=== PATIENT | male | born 1960 | race Caucasian/White ===

== ENCOUNTER 2023-09-14 17:18 | Emergency (ER) | payer OTHER ==
[~2023-09-14] VITALS: Ht 177.8 cm; Wt 95.0 kg
[2023-09-14 17:21] VITALS: O2SAT 98
[2023-09-14 18:28] LABS: BASOPHILS % 0.6 % (0.0-2.0); EOSINOPHILS % 0.8 % (0.0-5.0); HEMATOCRIT. 35.4 % (42.0-52.0); LYMPHOCYTES % 21.3 % (20.0-50.0); MEAN CORPUSCULAR HEMOGLOBIN 30.9 pg (28.0-32.0); MEAN CORPUSCULAR HGB CONC 33.9 g/dL (31.0-37.0); MEAN CORPUSCULAR VOLUME 90.9 fL (80.0-94.0); MEAN PLATELET VOLUME 7.9 fl (7.4-10.4); MONOCYTES % 8.4 % (2.0-8.0); NEUTROPHILS % 68.9 % (40.0-76.0); PLATELET 252 x1000/uL (130-400); RED BLOOD CELL COUNT 3.89 mill/uL (4.7-6.1); RED CELL DISTRIBUTION WIDTH 15.3 % (11.6-14.6); WHITE BLOOD COUNT 8.9 x1000/uL (4.5-11.0)
[2023-09-14 18:38] LABS: CHLORIDE 106 mEq/L (98-107); POTASSIUM 3.8 mEq/L (3.5-5.1); SODIUM 137 mEq/L (136-145)
[2023-09-14 18:39] LABS: CALCIUM 9.3 mg/dL (8.7-10.4); CARBON DIOXIDE 25 mEq/L (21-32)
[2023-09-14 18:44] LABS: CREATININE 0.7 mg/dL (0.6-1.3); GLUCOSE 84 mg/dL (70-105); UREA NITROGEN BLOOD 22 mg/dL (9-23)
[2023-09-14 18:45] LABS: ETHANOL BLOOD < 10 mg/dL (<10)
[2023-09-14 18:46] LABS: ACETAMINOPHEN < 2 ug/mL (10-30); ALANINE AMINOTRANSFERASE < 7 IU/L (10-49); ALBUMIN 4.1 g/dL (3.2-4.8); ASPARTATE AMINOTRANSFERASE 14 IU/L (<34)
[2023-09-14 18:47] LABS: BILIRUBIN TOTAL 0.2 mg/dL (0.1-1.0); PROTEIN TOTAL 7.5 g/dL (6.0-8.3)
[2023-09-14 20:41] LABS: CLARITY URINE CLEAR (CLEAR); COLOR URINE YELLOW (YELLOW); GLUCOSE URINE NEGATIVE (NEGATIVE); KETONES URINE NEGATIVE (NEGATIVE); LEUKOCYTE ESTERASE URINE NEGATIVE (NEGATIVE); NITRITE URINE NEGATIVE (NEGATIVE); OCCULT BLOOD URINE NEGATIVE (NEGATIVE); PH URINE 6.5 (4.5-8.0); PROTEIN URINE NEGATIVE (NEGATIVE); SPECIFIC GRAVITY URINE 1.019 (1.005-1.030)
[2023-09-14 20:54] LABS: *AMPHETAMINES SCREEN URINE NEGATIVE (NEGATIVE)
[2023-09-14 20:55] LABS: *BARBITURATES SCREEN URINE NEGATIVE (NEGATIVE); *BENZODIAZEPINES SCREEN URINE NEGATIVE (NEGATIVE); *COCAINE SCREEN URINE NEGATIVE (NEGATIVE); CANNABINOID URINE SCREEN NEGATIVE (NEGATIVE); ECSTASY MDMA SCREEN URINE NEGATIVE (NEGATIVE); METHADONE URINE SCREEN Neg (NEGATIVE); OPIATES URINE SCREEN NEGATIVE (NEGATIVE); PHENCYCLIDINE URINE SCREEN NEGATIVE (NEGATIVE)
[2023-09-14] MEDS: ZOLPIDEM TARTRATE 5MG TABLET PO PRN (22:42)
[2023-09-15] MEDS: QUETIAPINE FUMARATE 25MG TABLET PO SCH (10:54)
[2023-09-15] MEDS: SERTRALINE HCL 25MG TABLET PO SCH (13:45)
[2023-09-15] MEDS: QUETIAPINE FUMARATE 50MG TABLET PO SCH (21:00)
[2023-09-17] MEDS: SERTRALINE HCL 50MG TABLET PO SCH (09:00)
[2023-09-17] MEDS: QUETIAPINE FUMARATE 50MG TABLET PO SCH (10:01)
[2023-09-17 12:45] VITALS: BP 118/68; PULSE 88; RESP 14; TEMP 98.7
== END 2023-09-17 13:15 | disposition still patient (30) ==
LOC: ER 17:18
DX: R45.851 Suicidal ideations (principal); Z20.822 Contact with and (suspected) exposure to COVID-19
CPT/HCPCS: 80053; 80305; 81003; 80307; 80329; 80320; 85025; 36415; 99291; 87426; Z7610 ×3; G0480